=== PATIENT | female | born 2000 | race Caucasian/White ===

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

== ENCOUNTER 2020-06-04 08:41 | Emergency (ER) | payer OTHER ==
[2020-06-04 08:50] VITALS: BP 100/57; PULSE 76; TEMP 98; BMI 27.4
== END 2020-06-04 11:04 | disposition home or self-care (01) ==
LOC: JER 08:41
DX: S93.401A Sprain of unspecified ligament of right ankle, initial encounter (principal)
CPT/HCPCS: 73610-TC-RT-FY; 73630-TC-RT-FY; 99284-25

== ENCOUNTER 2022-01-25 11:44 | Observation (INO) | payer OTHER ==
[2022-01-25 15:12] LABS: BASO % 1.4 % (0-2.0); EOS % 3.2 % (0-4.5); HEMATOCRIT 43.6 % (32.4-45.2); HEMOGLOBIN 14.2 GM/dL (10.7-15.3); LYMPH % 29.4 % (8-40); MCH 30.9 pg (25.7-33.7); MCHC 32.6 g/dl (32.0-36.0); MEAN CELL VOLUME 94.8 fl (80-96); MEAN PLT VOLUME 8.5 fl (7.5-11.1); PLATELET COUNT 287 10^3/uL (134-434); RDW 13.6 % (11.6-15.6); WHITE BLOOD COUNT 7.7 K/mm3 (4.0-10.0)
[2022-01-25 15:31] LABS: PH,URINE 6.5 (5.0-8.0); URINE APPEARANCE CLEAR; URINE BILIRUBIN NEGATIVE (NEGATIVE); URINE COLOR YELLOW; URINE GLUCOSE (UA) NEGATIVE (NEGATIVE); URINE KETONE TRACE (NEGATIVE); URINE LEUK ESTERASE NEGATIVE (NEGATIVE); URINE NITRITE NEGATIVE (NEGATIVE); URINE PROTEIN NEGATIVE (NEGATIVE); URINE UROBILINOGEN 0.2 mg/dL (0.2-1.0)
[2022-01-25 15:34] LABS: HCG,QUALITATIVE URINE Negative
[2022-01-25 15:41] LABS: CALCIUM 9.7 mg/dL (8.5-10.1)
[2022-01-25 15:42] LABS: BLOOD UREA NITROGEN 6.8 mg/dL (7-18)
[2022-01-25 15:45] LABS: CREATININE 0.8 mg/dL (0.55-1.3)
[2022-01-25 15:46] LABS: BILIRUBIN,TOTAL 0.6 mg/dL (0.2-1); TOT PROT 7.6 g/dl (6.4-8.2)
[2022-01-25] MEDS ORDERED: KETOROLAC TROMETHAMINE 30 MG/1 ML VIAL IVPUSH ONE (23:40)
[2022-01-26] MEDS ORDERED: KETOROLAC TROMETHAMINE 30 MG/1 ML VIAL ONE (00:02)
[2022-01-26 03:43] VITALS: BMI 29.7
[2022-01-26] MEDS ORDERED: ACETAMINOPHEN 1000 MG/100 ML BAG IVPB PRN (06:32)
[2022-01-26 08:16] VITALS: RESP 18
[2022-01-26 09:32] LABS: HEMATOCRIT 38.1 % (32.4-45.2); MCH 31.9 pg (25.7-33.7); MCHC 34.1 g/dl (32.0-36.0); MEAN CELL VOLUME 93.7 fl (80-96); MEAN PLT VOLUME 8.2 fl (7.5-11.1); PLATELET COUNT 252 10^3/uL (134-434); RBC 4.07 M/mm3 (3.60-5.2); RDW 13.8 % (11.6-15.6); WHITE BLOOD COUNT 5.6 K/mm3 (4.0-10.0)
[2022-01-26 10:15] LABS: CALCIUM 9.4 mg/dL (8.5-10.1)
[2022-01-26 10:16] LABS: BLOOD UREA NITROGEN 9.6 mg/dL (7-18)
[2022-01-26 14:52] VITALS: BP 102/53; PULSE 67; TEMP 98.7
== END 2022-01-26 15:29 | disposition home or self-care (01) ==
LOC: JER 11:44 → JERBED 22:10 → J6S 01-26 01:26
PROVIDERS: ADMIT Internal Medicine; ATTEND Internal Medicine
PROC: 3E0333Z Introduction of Anti-inflammatory into Peripheral Vein, Percutaneous Approach (ICD-10-PCS; principal; 2022-01-25)
DX: D25.9 Leiomyoma of uterus, unspecified (principal); R10.9 Unspecified abdominal pain; F32.A Depression, unspecified; F12.10 Cannabis abuse, uncomplicated
CPT/HCPCS: 0241U-QW; 36415; 74177-TC; 76830-TC; 80048; 80053; 81003; 84443; 84703; 85025; 85027; 86304; 87077; 87086; 87186; 93005; 93010; 96374; 99285-25; G0378; Q9967

== ENCOUNTER 2022-02-27 05:45 | Inpatient (IN) | payer OTHER ==
[2022-02-23 15:49] VITALS: BMI 29.2
[2022-02-27] MEDS ORDERED: GABAPENTIN 300 MG CAPSULE ONE (06:21)
[2022-02-27] MEDS ORDERED: PHENAZOPYRIDINE HCL 100 MG TABLET (FP) ONE (06:21)
[2022-02-27] MEDS ORDERED: ACETAMINOPHEN INJECTION 100 ML IVPB ONE (06:22)
[2022-02-27] MEDS ORDERED: ACETAMINOPHEN 1000 MG/100 ML BAG IVPB ONE (07:00)
[2022-02-27] MEDS ORDERED: PHENAZOPYRIDINE HCL 100 MG TABLET (FP) PO ONE (07:00)
[2022-02-27] MEDS ORDERED: GABAPENTIN 300 MG CAPSULE PO ONE (07:00)
[2022-02-27] MEDS ORDERED: FENTANYL CITRATE/PF 50 MCG/ML VIAL ONE ×5 (07:20→10:23)
[2022-02-27] MEDS ORDERED: MIDAZOLAM HCL 2 MG/2 ML SINGLE DOSE VIAL ONE (07:20)
[2022-02-27] MEDS ORDERED: PROPOFOL 40 ML ONE ×2 (07:20→08:44)
[2022-02-27] MEDS ORDERED: ROPIVACAINE HCL 0.5% 30ML VIAL ONE (07:23)
[2022-02-27] MEDS ORDERED: DEXAMETHASONE SOD PHOSPHATE 10 MG/1 ML VIAL ONE (07:23)
[2022-02-27] MEDS ORDERED: ceFAZolin SODIUM 1 GM VIAL IVPB ONE (08:00)
[2022-02-27] MEDS ORDERED: HYDROmorphone HCl 2 MG/ML VIAL ONE (08:02)
[2022-02-27] MEDS ORDERED: PROMETHAZINE HCL 25 MG/1 ML VIAL IVPUSH PRN (10:15)
[2022-02-27] MEDS ORDERED: LACTATED RINGERS SOLUTION 1,000 ML IV SCH (10:15)
[2022-02-27] MEDS ORDERED: oxyCODONE HCL 5 MG TABLET PO PRN ×2 (10:42)
[2022-02-27] MEDS ORDERED: BISACODYL 5 MG TABLET.DR (FP) PO PRN (10:42)
[2022-02-27] MEDS ORDERED: DOCUSATE SODIUM 100 MG CAPSULE (FP) PO PRN (10:42)
[2022-02-27] MEDS ORDERED: ONDANSETRON 4 MG/2 ML VIAL IVPUSH PRN (10:42)
[2022-02-27] MEDS ORDERED: BENZOCAINE/MENTHOL 1 EACH LOZENGE MM PRN (10:51)
[2022-02-27] MEDS: SODIUM CHLORIDE 1,000 ML IV SCH ×2 (11:00→21:00)
[2022-02-27] MEDS ORDERED: PROMETHAZINE HCL 25 MG/1 ML VIAL ONE (11:00)
[2022-02-27] MEDS: CEFAZOLIN 1 GM in DEXTROSE 5%-WATER - 50 ML IVPB SCH (16:45)
[2022-02-27] MEDS: KETOROLAC TROMETHAMINE 30 MG/1 ML VIAL IVPUSH SCH (17:05)
[2022-02-27] MEDS: ACETAMINOPHEN 1000 MG/100 ML BAG IVPB SCH (20:31)
[2022-02-27] MEDS: SIMETHICONE 80 MG TAB.CHEW (FP) PO PRN (20:31)
[2022-02-28] MEDS: CEFAZOLIN 1 GM in DEXTROSE 5%-WATER - 50 ML IVPB SCH ×2 (00:23→07:56)
[2022-02-28] MEDS: KETOROLAC TROMETHAMINE 30 MG/1 ML VIAL IVPUSH SCH ×3 (01:47→18:00)
[2022-02-28] MEDS: ACETAMINOPHEN 1000 MG/100 ML BAG IVPB SCH ×2 (03:06→10:10)
[2022-02-28] MEDS: SODIUM CHLORIDE 1,000 ML IV SCH ×2 (06:49→16:27)
[2022-02-28 09:13] LABS: HEMATOCRIT 33.7 % (32.4-45.2); HEMOGLOBIN 11.1 GM/dL (10.7-15.3); MCH 30.8 pg (25.7-33.7); MEAN CELL VOLUME 93.5 fl (80-96); MEAN PLT VOLUME 8.6 fl (7.5-11.1); PLATELET COUNT 242 10^3/uL (134-434); RDW 13.7 % (11.6-15.6); WHITE BLOOD COUNT 9.9 K/mm3 (4.0-10.0)
[2022-02-28 09:36] LABS: BLOOD UREA NITROGEN 6.2 mg/dL (7-18)
[2022-02-28 09:40] LABS: CREATININE 0.9 mg/dL (0.55-1.3)
[2022-02-28] MEDS: ENOXAPARIN NA (PORCINE) 40 MG/0.4 ML DISP.SYRIN SQ SCH (10:15)
[2022-02-28] MEDS: ACETAMINOPHEN 500 MG TABLET (FP) PO SCH ×2 (16:27→22:02)
[2022-02-28] MEDS: SIMETHICONE 80 MG TAB.CHEW (FP) PO PRN (22:02)
[2022-02-28 22:57] VITALS: RESP 18
[2022-03-01] MEDS: SIMETHICONE 80 MG TAB.CHEW (FP) PO PRN (02:35)
[2022-03-01] MEDS: ACETAMINOPHEN 500 MG TABLET (FP) PO SCH ×2 (03:29→09:59)
[2022-03-01] MEDS: IBUPROFEN 600 MG TABLET (FP) PO SCH ×2 (06:19→12:01)
[2022-03-01 09:07] VITALS: BP 103/59; PULSE 78; TEMP 98.6
[2022-03-01 09:20] LABS: BASO % 0.5 % (0-2.0); EOS % 3.8 % (0-4.5); HEMOGLOBIN 10.6 GM/dL (10.7-15.3); LYMPH % 20.4 % (8-40); MCHC 33.3 g/dl (32.0-36.0); MEAN CELL VOLUME 93.3 fl (80-96); MEAN PLT VOLUME 8.9 fl (7.5-11.1); MONO % 9.1 % (3.8-10.2); NEUT % 66.2 % (42.8-82.8); PLATELET COUNT 232 10^3/uL (134-434); RBC 3.43 M/mm3 (3.60-5.2); RDW 13.5 % (11.6-15.6); WHITE BLOOD COUNT 9.7 K/mm3 (4.0-10.0)
[2022-03-01] MEDS: ENOXAPARIN NA (PORCINE) 40 MG/0.4 ML DISP.SYRIN SQ SCH (09:59)
[2022-03-01] MEDS ORDERED: POLYETHYLENE GLYCOL (HEALTHYLAX) 3350 17 GM PACKET PO SCH (10:00)
== END 2022-03-01 12:55 | disposition home or self-care (01) | DRG 519 ==
LOC: JASUSAT 05:45 → J2C 10:43 → J3W 11:57
PROVIDERS: ADMIT Obstetrics & Gynecology; ATTEND Obstetrics & Gynecology
PROC: 0UB90ZZ Excision of Uterus, Open Approach (ICD-10-PCS; principal; 2022-02-27 07:30)
DX: D25.2 Subserosal leiomyoma of uterus (principal)
CPT/HCPCS: 36415; 80048; 81025; 85025; 85027; 86850; 86900; 86901; 88305-TC; 94010; 94760; J1100